=== PATIENT | male | born 1995 | race Caucasian/White ===

== ENCOUNTER 2018-09-05 18:08 | Emergency (ER) | payer MEDICAID ==
[2018-09-05 18:51] VITALS: BP 119/72
== END 2018-09-05 19:45 | disposition left against medical advice (07) ==
LOC: ER 18:08
DX: Z53.21 Procedure and treatment not carried out due to patient leaving prior to being seen by health care provider (principal)

== ENCOUNTER → 2018-09-23 | Outpatient (CLI) | payer MEDICAID ==
[2018-09-23 13:00] LABS: ABSOLUTE EOSINOPHILS # (AUTO) 0.1 10^3/uL (0.0-0.6); ABSOLUTE LYMPHOCYTES (AUTO) 1.8 10^3/uL (0.5-4.7); ABSOLUTE MONOCYTES (AUTO) 0.4 10^3/uL (0.1-1.4); ABSOLUTE NEUT (AUTO) 2.1 10^3/uL (1.7-8.2); BASOPHILS % (AUTO) 0.5 % (0-2); EOSINOPHILS % (AUTO) 1.3 % (0-6); HEMATOCRIT 36.2 % (37.9-51.0); HEMOGLOBIN 13.1 g/dL (13.5-17.0); LYMPHOCYTES % (AUTO) 41.8 % (13-45); MEAN CORPUSCULAR HEMOGLOBIN 31.1 pg (27.0-33.4); MEAN CORPUSCULAR HGB CONC 36.1 g/dL (32.0-36.0); MEAN CORPUSCULAR VOLUME 86 fl (80-97); MONOCYTES % (AUTO) 8.5 % (3-13); PLATELET COUNT 157 10^3/uL (150-450); RED BLOOD COUNT 4.21 10^6/uL (4.35-5.55); RED CELL DISTRIBUTION WIDTH 12.9 % (11.5-14.0); SEGMENTED NEUTROPHILS % (AUTO) 47.9 % (42-78); TOTAL CELLS COUNTED % (AUTO) 100 %; WHITE BLOOD COUNT 4.3 10^3/uL (4.0-10.5)
[2018-09-23 13:30] LABS: ALANINE AMINOTRANSFERASE 33 U/L (21-72); ALBUMIN 4.4 g/dL (3.5-5.0); ALKALINE PHOSPHATASE 66 U/L (38-126); ANION GAP 8 (5-19); ASPARTATE AMINO TRANSFERASE 25 U/L (17-59); BILIRUBIN,DIRECT 0.1 mg/dL (0.0-0.4); BILIRUBIN,TOTAL 0.4 mg/dL (0.2-1.3); BLOOD UREA NITROGEN 20 mg/dL (7-20); CALCIUM 9.6 mg/dL (8.4-10.2); CARBON DIOXIDE 31 mmol/L (22-30); CHLORIDE 100 mmol/L (98-107); GLUCOSE 71 mg/dL (75-110); POTASSIUM 4.6 mmol/L (3.6-5.0); SODIUM 139.3 mmol/L (137-145); TOTAL PROTEIN 7.1 g/dL (6.3-8.2)
[2018-09-24 07:23] LABS: HSV-I IGG AB <0.91 index (0.00-0.90)
[2018-09-24 11:40] LABS: HEPATITIS C VIRUS AB <0.1 s/co ratio (0.0-0.9); HEPATITS B SURFACE ANTIGEN Negative (Negative)
== END ==
LOC: OD 11:30
PROVIDERS: ATTEND Internal Medicine Geriatric Medicine
DX: Z20.2 Contact with and (suspected) exposure to infections with a predominantly sexual mode of transmission (principal); E55.9 Vitamin D deficiency, unspecified; R41.1 Anterograde amnesia
CPT/HCPCS: 36415; 80053; 80164; 82306; 83036; 85025; 86695; 86704; 86706; 86803; 86804; 87340

== ENCOUNTER → 2018-10-06 | Outpatient (CLI) | payer MEDICAID ==
[2018-10-06 11:33] LABS: CHOLESTEROL 147.93 mg/dL (0-200); TRIGLYCERIDES 48 mg/dL (<150)
[2018-10-06 11:50] LABS: DIRECT LDL 77 mg/dL (<100)
== END ==
LOC: OD 10:28
PROVIDERS: ATTEND Internal Medicine Geriatric Medicine
DX: Z20.2 Contact with and (suspected) exposure to infections with a predominantly sexual mode of transmission (principal); E55.9 Vitamin D deficiency, unspecified; F41.1 Generalized anxiety disorder
CPT/HCPCS: 36415; 80061

== ENCOUNTER → 2018-11-13 | Outpatient (CLI) | payer MEDICAID ==
--- NOTE | 2018-11-13 09:07 | RADIOLOGY REPORT (SQ) ---
EXAM DESCRIPTION: EMERSON SWALLOW COMPLETED DATE/TIME: 11/13/2018 8:40 am REASON FOR STUDY: SPEECH DISTURBANCES (R47.9), DYSARTHRIA AND ANARTHRIA (K47.1) R47.9 UNSPECIFIED S PEECH DISTURBANCES R47.1 DYSARTHRIA AND ANARTHRIA COMPARISON: None. TECHNIQUE: Videofluoroscopic swallowing examination was performed in conjunction with speech patholo gy. Videofluoroscopic imaging was obtained and reviewed and these are the findings: RADIATION DOSE: Fluoro time 2.21 minutes 2 images saved to PACS. LIMITATIONS: None FINDINGS: The patient was brought into the fluoro room and placed upright on a modified barium swall ow chair. The patient was then given multiple consistencies mixed with barium to swallow under live fluoroscopic video guidance. According to the Speech Pathologist there was aspiration seen with thin barium. Laryngeal penetration seen with nectar thick consistency. Please refer to the speech pathol ogy report for further details. IMPRESSION: TRACHEAL ASPIRATION SEEN WITH THIN BARIUM. PLEASE SEE SPEECH PATHOLOGIST REPORT FOR OTHE R FINDINGS AND RECOMMENDATIONS. COMMENT: NONE Quality ID [id number]: Final reports for procedures using fluoroscopy that document radiation exposure leonidas fransico, or exposure time and number of fluorographic images (if radiation exposure indices are not avail able) TECHNICAL DOCUMENTATION: JOB ID: [id number] [employer]- All Rights Reserved Reading location - IP/workstation name: [email or web address]
--- NOTE | 2018-11-13 09:31 | ST Modified Barium Swallow ---
Recommendation - Recommendations Recommendations: Recommend use of chin tuck with liquids, and consideration of nectar liquids to reduce risk of aspiration. Patient may benefit from dysphagia treatment for patient and family education and training on nature of condition, dysphagia exercises, and strategies. Medical Diagnoses - Medical Diagnoses Medical Diagnosis Description & ICD-10 Code(s): R13.10 dysphagia Other Medical Diagnoses/Co-Morbidities: per caregiver report: ADHD, bipolar, Autism, seizures, breathing problems, reflux - ICD-10 Tx Diagnosis Coding (2) Dysarthria and anarthria ICD-10 Code(s): R47.1 - DYSARTHRIA AND ANARTHRIA ST Modified Barium Swallow - General Date: 11/13/18 Referring Physician: Dr. Wick Date of Onset: 11/01/15 - approximate onset date Reason for Referral: difficulty swallowing - History History obtained from: Parent/Caregiver -: Medical - History obtained from speech evaluation on 09/30/18, gericare aide teacher reports no changes since that time: Pt is a 23 year old male accompanied to evaluation by mother/medical POA. Pt referred by Dr. Wick. Mother acted as primary historian during evaluation. Mother reported that since patient got out of residential facility at 20 has been having difficulty with speech, swallowing. Per mother, Dr. Wick indicated pt has a mild tongue tie. Mother reported that Fredi had speech therapy in elementary school but not middle or high school because "back then they didn't offer it"l. Mother reported severe weight loss (about 90 pounds) in the last 14 months with no medication changes. Mother reported that pt has been having swallowing problems since he was 20 and left residential facility. At that time, pt had wisdom teeth removed. Medications: list provided by gericare aide teacher: chlorpromazine, divalproexer, hydroxyzine, venlafaxino, benztropine, olanzapine, trazodone, clonazepam, vitamin D, iron Allergies: none reported - Functional Status Prior Functional Status: INDEPENDENT: feeding Current Functional Limitations: feeding - Subjective Patient/caregiver goal(s): safe swallow Cognitive-Linguistic Function: Functional Speech Intelligibility: Moderately dysarthric Current Nutritional Means: PO Current PO diet: Regular - is supplimenting diet with ensure Current symptoms: Weight loss, Coughing, c/o Globus sensation Pain: Patient reports, 0/5 - Objective Assessment: Upright, Left Lateral - Food Trials Used Food trials used: Thin liquids, [place] thick liquids, Pureed, Regular The patient: Was Able to Self Feed - Oral-Motor Skills Dentition: Full Velo-pharyngeal function: Unremarkable Laryngeal Function: clear voicing - Assessment Oral prep: Normal Labial closure: Adequate Leakage: None Mastication: Adequate Lingual Movement: Normal Oral stage: Normal for this Procedure - Pharyngeal Stage Initiation of Pharyngeal Stage Reflex: Normal Decreased laryngeal elevation: Yes Reduced Velopharyngeal Closure: no Reduced pressure generation: Yes reduced tongue-based retraction: No Pre-swallow pooling in valleculae: Mild Pre-Swallow pooling in pyriforms: Mild Reduced epiglottic excursion: No Reduced pharyngeal peristalsis/contraction: Yes Multiple Swallows with: Cleared w/ Liquid Assist Post-swallow residulas vallecular: Moderate Post-Swallow residuals in pyriforms: Mild Reduced Cricopharyngeal opening: No - Fall Risk Assessment Medications/Conditions that increase fall risks include: Antidepressants, sedatives, anti-arrhythmic, diuretic, benzodiazipenes, neuroleptics. BP regulation problems, cardiac problems, balance or gait deficits, neurological problems. Fall Risk Actions Taken: No action needed - Behavioral Observations During evaluation process patient: was pleasant, was cooperative, able to answer questions - Treatment / Educational Needs: Treatment/Education Needs: Treatment consisted of patient education on the role of the Speech Pathologist. Patient's plan of care and golas were communicated as well as scheduling and attendance policies. Recommendations for initial home program were shared. Patient demonstrated understanding and verbalized agreement. - Impression/Summary Laryngeal Penetration: Yes - with thin and nectar liquids, Delayed cough, during swallow Tracheal Aspiration: yes - with thin liquids only, deep, silent, during swallow Productive cough: No Effective Clearing: no Effective compensatory strategies: chin tuck Ineffective compensatory strategies: hard swallow Patient presents with: Pharyngeal stage dysph., Mild-Moderate Risk of Aspiration: Moderate Risk of nutritional compromise: Moderate Evaluation and Findings: Patient demonstrated reduced pharyngeal constriction and reduced laryngeal elevation/airway protection. This resulted in significant residue in valleculae, and mild residue in pyriform sinus. Patient frequently ducked head down to swallow liquids. When cued to keep head upright, jv aspiration of thin liquid seen without a cough reflex. With chin tuck, no aspiration seen, but penetration was present. Penetration also seen with nectar thick liquid trial with head upright. - Recommendations Liquid Diet Modification: [place]-Thick - discussed nectar thick liquids with gericare aide teacher due to risk of aspiration, hand out given, Thin - with chin tuck Strict aspiration precautions: Yes Pt/Family education and followup with MD: Yes Dysphagia therapy with RESIDENT SERVICE COORDINATOR: dysphagia therapy Recommended techniques: Fully Upright During Meal, Small Bites and Sips, Chin Tuck to Swallow Supervision: requires assistance Information, Precautions and Recommendations: Patient (Written), Patient (Verbal), Family Member (Written), Family Member (Verbal) - Time Total Time: 30 - Plan of Care Summary: Dysphagia treatment is indicated. Plan of care to be determined by treating therapist. Strategies to optimize patient understanding include:: ongoing assessment of educational needs, implementation of educational strategies, and re-education. - - -: Thank you for the opportunity to work with this patient and his/her family. Should you have any questions about this patient's plan or progress, I can be reached at [phone].
== END ==
LOC: RAD 07:47
PROVIDERS: ATTEND Otolaryngology
DX: R47.9 Unspecified speech disturbances (principal); R47.1 Dysarthria and anarthria
CPT/HCPCS: 74230

== ENCOUNTER → 2020-09-22 | Outpatient (CLI) | payer OTHER, MEDICAID ==
--- OUTSIDE RECORDS SUMMARY | 2020-09-22 07:57 | XMS REPORT ---
:1995 Author Organization [facility] Address [facility] [address] [place] [id number] Care Team Providers Name Role Phone RICK CORTES Attending Clinician Unavailable ALE Attending Clinician Unavailable Allergies, Adverse Reactions, Alerts This patient has no known allergies or adverse reactions. Medications Ordered Filled Start Stop Current Ordering Indication Dosage Frequency Signature Comments Components Medication Medication Date Date Medication? Clinician (SIG) Name Name olanzapine 2019-0 No 1 BID olanzapine 10 mg 1-17 10 mg tablet Take 00:00: tablet 1 tablet 00 Take 1 twice a day tablet by oral twice a route. day by oral route. chlorpromaz No 2 BID chlorproma ine 100 mg zine 100 tablet TAKE mg tablet TWO TABLETS TAKE TWO BY MOUTH TABLETS BY TWICE DAILY MOUTH FOR 30 DAYS TWICE DAILY FOR 30 DAYS benztropine No 1 BID benztropin 1 mg tablet e 1 mg TAKE ONE tablet AND TAKE ONE ONE-HALF AND TABLETS BY ONE-HALF MOUTH TWICE TABLETS BY DAILY FOR MOUTH 30 DAYS TWICE DAILY FOR 30 DAYS Depakote ER No 1 TID Depakote 500 mg ER 500 mg tablet,exte tablet,ext nded ended release release Take 1 Take 1 tablet 3 tablet 3 times a day times a by oral day by route. oral route. Effexor XR No 1capsul Q1D Effexor XR 75 mg e(s) 75 mg capsule,ext capsule,ex ended tended release release Take 1 Take 1 capsule capsule every day every day by oral by oral route. route. Judith-Time No 1 Q2D Judith-Time 325 mg (65 325 mg (65 mg iron) mg iron) tablet Take tablet 1 tablet Take 1 every other tablet day by oral every route. other day by oral route. Klonopin No .5 BID Klonopin 0.5 mg 0.5 mg tablet Take tablet 0.5 tablets Take 0.5 twice a day tablets by oral twice a route as day by needed. oral route as needed. trazodone No 1 Q1D trazodone 150 mg 150 mg tablet TAKE tablet ONE TABLET TAKE ONE BY MOUTH TABLET BY EVERY NIGHT MOUTH AT BEDTIME EVERY NIGHT AT BEDTIME Vistaril 25 No 1capsul TID Vistaril mg capsule e(s) 25 mg Take 1 capsule capsule 3 Take 1 times a day capsule 3 by oral times a route. day by oral route. Vistaril 50 No 1capsul Q1D Vistaril mg capsule e(s) 50 mg Take 1 capsule capsule Take 1 every day capsule by oral every day route at by oral bedtime. route at bedtime. clonazepam No clonazepam 0.5 mg 0.5 mg tablet TAKE tablet ONE-HALF TAKE TABLET BY ONE-HALF MOUTH EVERY TABLET BY DAY FOR 30 MOUTH DAYS EVERY DAY FOR 30 DAYS divalproex No divalproex ER 500 mg ER 500 mg tablet,exte tablet,ext nded ended release 24 release 24 hr TAKE 3 hr TAKE 3 TABLETS BY TABLETS BY MOUTH EVERY MOUTH NIGHT AT EVERY BEDTIME FOR NIGHT AT 30 DAYS BEDTIME FOR 30 DAYS hydroxyzine No hydroxyzin pamoate 25 e pamoate mg capsule 25 mg Take 1 capsule capsule 3 Take 1 times a day capsule 3 by oral times a route. day by oral route. venlafaxine No venlafaxin ER 75 mg e ER 75 mg capsule,ext capsule,ex ended tended release 24 release 24 hr TAKE 1 hr TAKE 1 CAPSULE BY CAPSULE BY MOUTH EVERY MOUTH DAY WITH EVERY DAY FOOD FOR 30 WITH FOOD DAYS FOR 30 DAYS hydroxyzine No hydroxyzin pamoate 50 e pamoate mg capsule 50 mg TAKE 1 capsule CAPSULE BY TAKE 1 MOUTH EVERY CAPSULE BY 8 HOURS MOUTH NEEDED FOR EVERY 8 30 DAYS HOURS NEEDED FOR 30 DAYS olanzapine No 1 BID olanzapine 20 mg 20 mg tablet Take tablet 1 tablet Take 1 twice a day tablet by oral twice a route as day by directed. oral route as directed. DOK 100 mg No DOK 100 mg capsule capsule TAKE 2 TAKE 2 CAPSULES BY CAPSULES MOUTH EVERY BY MOUTH DAY FOR 30 EVERY DAY DAYS FOR 30 DAYS guanfacine No guanfacine ER 1 mg ER 1 mg tablet,exte tablet,ext nded ended release 24 release 24 hr TAKE 1-2 hr TAKE TABLETS BY 1-2 MOUTH ONCE TABLETS BY DAILY FOR MOUTH ONCE 30 DAYS DAILY FOR 30 DAYS olanzapine No olanzapine 15 mg 15 mg tablet TAKE tablet ONE TABLET TAKE ONE BY MOUTH TABLET BY TWICE DAILY MOUTH FOR 30 DAYS TWICE DAILY FOR 30 DAYS trazodone No trazodone 100 mg 100 mg tablet TAKE tablet TWO TABLETS TAKE TWO BY MOUTH TABLETS BY EVERY NIGHT MOUTH AT BEDTIME EVERY FOR 30 DAYS NIGHT AT BEDTIME FOR 30 DAYS guanfacine No 1mg guanfacine 1 mg tablet 1 mg 1 mg by tablet 1 oral route. mg by oral route. hydroxyzine No 50mg Q8H hydroxyzin HCl 50 mg e HCl 50 tablet 50 mg tablet mg every 8 50 mg hours by every 8 oral route. hours by oral route. venlafaxine No 75mg venlafaxin 75 mg e 75 mg tablet 75 tablet 75 mg by oral mg by oral route. route. Colace 100 No 2capsul Q1D Colace 100 mg capsule e(s) mg capsule Take 2 Take 2 capsules capsules every day every day by oral by oral route for route for 30 days. 30 days. ergocalcife No 1capsul ergocalcif rol e(s) tacos (vitamin (vitamin D2) 1,250 D2) 1,250 mcg (50,000 mcg unit) (50,000 capsule unit) Take 1 capsule capsule Take 1 every month capsule by oral every route for month by 90 days. oral route for 90 days. guanfacine No guanfacine ER 2 mg ER 2 mg tablet,exte tablet,ext nded ended release 24 release 24 hr TAKE ONE hr TAKE TABLET BY ONE TABLET MOUTH ONCE BY MOUTH DAILY ONCE DAILY docusate Yes 200mg QD Take 200 (COLACE) mg by 100 MG mouth once capsule daily chlorproMAZ Yes 200mg Q.5D Take 200 INE mg by (THORAZINE) mouth 2 100 MG (two) tablet times daily traZODone Yes 200mg QD Take 200 (DESYREL) mg by 100 MG mouth tablet nightly guanFACINE Yes 1mg QD Take 1 mg (TENEX) 1 by mouth MG tablet nightly OLANZapine Yes 15mg Q.5D Take 15 mg (ZYPREXA) by mouth 2 15 MG (two) tablet times daily hydrOXYzine Yes 50mg Q8H Take 50 mg (ATARAX) 50 by mouth MG tablet every 8 (eight) hours as needed for Itching divalproex Yes 1500mg QD Take 1,500 (DEPAKOTE mg by ER) 500 MG mouth ER tablet nightly clonazePAM Yes .5mg QD Take 0.5 (KLONOPIN) mg by 0.5 MG mouth once tablet daily venlafaxine Yes 75mg QD Take 75 mg (EFFEXOR) by mouth 75 MG once daily tablet benztropine Yes 1mg Q.5D Take 1 mg (COGENTIN) by mouth 2 1 MG tablet (two) times daily melatonin 5 Yes 10mg Take 10 mg mg Tab by mouth every other day ergocalcife Yes [id number] Take rol, 50,000 vitamin D2, Units by 1,250 mcg mouth once (50,000 a week unit) capsule multivitami Yes 2{tbl} QD Take 2 n Chew tablets by mouth once daily Herbal Yes Headache Supplement tension Problems Condition Condition Condition Status Onset Resolution Last Treatin g Comments Name Details Category Date Date Treatment Clinician Date Chronic Chronic Problem Active constipatio Constipatio 6-24 n n 00:00: 00 Visual Visual Problem Active disturbance Disturbance 2-28 00:00: 00 Generalized Generalized Problem Active anxiety Anxiety 1-17 disorder Disorder 00:00: 00 Autistic Autistic Problem Active disorder Disorder 6-05 00:00: 00 Vitamin D Vitamin D Problem Active deficiency Deficiency Hearing Hearing Problem Active loss Loss Abnormal Abnormal Problem Active weight loss Weight Loss Procedures Procedure Date / Time Performed Performing Clinician Yolanda aguero [id number] 00:00:00 Rick Cortes Ear Tube 1997-02-08 00:00:00 Results Test Description Test Time Test Comments Text Results Atomic Results Result Comments REQUEST FOR IMAGE LIBRARY 2020-05-14 07:31:46 Please r efer to the appropriate SERVICES PACS to view images. MRI head reference only 2020-05-14 07:31:11 This order has been auto-finalized. Please see additional clinical documentation for result rep ort. Lipid 1996 panel - Serum or Plasma 2018-10-06 00:00:00 Test Item Value Reference Range Comments triglycerides (test code = triglycerides) 48 mg/dL <150 cholesterol (test code = cholesterol) 147.93 mg/dL 0-200 direct LDL (test code = direct LDL) 77 mg/dL <100 VLDL cholesterol (test code = VLDL cholesterol) 10.0 mg/dL 10-31 direct HDL (test code = direct HDL) 59 mg/dL >40 visual [id number] 09:56:37 Test Item Value Reference Range Comments R Eye Uncorrected (test code = R Eye Uncorrected) 20/200 L Eye Uncorrected (test code = L Eye Uncorrected) 20/200 R Eye Corrected (test code = R Eye Corrected) 20/50 L Eye Corrected (test code = L Eye Corrected) 20/40 CBC WITH DIFFERENTIAL/PLATELET Test Item Value Reference Range Comments WBC (test code = 6690-2) 6.3 X10E3/UL 3.4-10.8 RBC (test code = 789-8) 4.28 X10E6/UL 4.14-5.80 HEMOGLOBIN (test code = 718-7) 13.1 G/DL 13.0-17.7 HEMATOCRIT (test code = 4544-3) 36.9 % 37.5-51.0 MCV (test code = 787-2) 86 FL 79-97 MCH (test code = 785-6) 30.6 PG 26.6-33.0 MCHC (test code = 786-4) 35.5 G/DL 31.5-35.7 RDW (test code = 788-0) 11.5 % 11.6-15.4 PLATELETS (test code = 777-3) 199 X10E3/UL 150-450 NEUTROPHILS (test code = 770-8) 62 % LYMPHS (test code = 736-9) 26 % MONOCYTES (test code = 5905-5) 9 % EOS (test code = 713-8) 1 % BASOS (test code = 706-2) 1 % NEUTROPHILS (ABSOLUTE) (test code = 751-8) 4 X10E3/UL 1.4-7 .0 LYMPHS (ABSOLUTE) (test code = 731-0) 1.7 X10E3/UL 0.7-3.1 MONOCYTES(ABSOLUTE) (test code = 742-7) .5 X10E3/UL 0.1-0.9 EOS (ABSOLUTE) (test code = 711-2) .1 X10E3/UL 0.0-0.4 BASO (ABSOLUTE) (test code = 704-7) 0 X10E3/UL 0.0-0.2 IMMATURE GRANULOCYTES (test code = 57767-8) 1 % IMMATURE GRANS (ABS) (test code = 68908-9) 0 X10E3/UL 0.0-0 .1 COMP. METABOLIC PANEL (14) Test Item Value Reference Range Comments GLUCOSE (test code = 2345-7) 87 MG/DL 65-99 BUN (test code = 3094-0) 16 MG/DL 6-20 CREATININE (test code = 2160-0) 1.07 MG/DL 0.76-1.27 EGFR IF NONAFRICN AM (test code = 41546-7) 97 ML/MIN/1.73 >59 EGFR IF AFRICN AM (test code = 54774-0) 113 ML/MIN/1.73 >59 BUN/CREATININE RATIO (test code = 3097-3) 15 9-20 SODIUM (test code = 2951-2) 140 MMOL/L 134-144 POTASSIUM (test code = 2823-3) 4.5 MMOL/L 3.5-5.2 CHLORIDE (test code = 2075-0) 101 MMOL/L 96-106 CARBON DIOXIDE, TOTAL (test code = 2027-9) 24 MMOL/L 20-29 CALCIUM (test code = 02662-8) 9.7 MG/DL 8.7-10.2 PROTEIN, TOTAL (test code = 2885-2) 7.2 G/DL 6.0-8.5 ALBUMIN (test code = 1751-7) 4.5 G/DL 4.1-5.2 GLOBULIN, TOTAL (test code = 90698-1) 2.7 G/DL 1.5-4.5 A/G RATIO (test code = 1759-0) 1.7 1.2-2.2 BILIRUBIN, TOTAL (test code = 1974-2) .3 MG/DL 0.0-1.2 ALKALINE PHOSPHATASE (test code = 6768-6) 77 IU/L 39-117 AST (SGOT) (test code = 1920-8) 19 IU/L 0-40 ALT (SGPT) (test code = 1742-6) 17 IU/L 0-44 LP+CHOL/HDL+CHD RISK Test Item Value Reference Range Comments CHOLESTEROL, TOTAL (test code = 3-3) 136 MG/DL 100-199 TRIGLYCERIDES (test code = 2571-8) 95 MG/DL 0-149 HDL CHOLESTEROL (test code = 5-9) 45 MG/DL >39 VLDL CHOLESTEROL ANDREA (test code = 48074-8) 18 MG/DL 5-40 LDL CHOL CALC ([facility]) (test code = 81410-0) 73 MG/DL 0-99 T. CHOL/HDL RATIO (test code = 9830-1) 3 RATIO 0.0-5.0 ESTIMATED CHD RISK (test code = 72654-7) < 0.5 TIMES AVG. 0.0-1. 0 VITAMIN D, 25-HYDROXY Test Item Value Reference Range Comments VITAMIN D, 25-HYDROXY (test code = 76920-5) 56.8 NG/ML 30.0 -100.0 Assessments Condition Name Status Diagnosis Date Treating Clinici an Abnormal weight loss Active 2020-08-17 16:12:15 Vitamin D deficiency Active 2020-08-17 16:12:16 Visual disturbance Active 2020-08-17 17:07:21 Adult health examination Active 2020-05-12 15:31:02 Immunization Active 2020-05-12 15:31:02 Disturbance in speech Active 2020-05-12 16:16:22 Dysphagia Active 2020-05-12 16:17:55 Vitamin D deficiency Active 2020-05-12 16:30:58 Abnormal weight loss Active 2020-05-12 16:40:30 Vitamin D deficiency Active 2020-02-24 14:08:58 Abnormal weight loss Active 2020-02-24 14:08:59 Chronic constipation Active 2020-02-24 14:41:24 Autistic disorder Active 2019-11-19 15:34:31 Generalized anxiety disorder Active 2019-11-19 15:34:37 Vitamin D deficiency Active 2019-02-18 16:27:33 Abnormal weight loss Active 2019-02-18 16:27:41 Visual disturbance Active 2019-02-18 17:40:19 Abnormal weight loss Active 2018-10-30 10:36:53 Abnormal weight loss Active 2018-09-18 09:40:40 Abnormal vision Active 2018-09-18 09:56:03 At risk of sexually transmitted Active 2018-09-18 10:46 :43 infection Vitamin D deficiency Active 2018-09-18 10:56:06 Generalized anxiety disorder Active 2018-09-18 10:57:34 Influenza vaccination Active 2018-09-18 11:06:34 Spells of decreased attentiveness Unknown Seizure-like activity (CMS-HCC) Unknown Near syncope Unknown Visual disturbances Unknown Gait difficulty Unknown Need for immunization against Unknown influenza Encounters Start End Encounter Admission Attending Care Care Encounter Date/Time Date/Time Type Type Clinicians Facility Department ID 2020-08-17 2020-08-17 [facility] 00:00:00 00:00:00 [facility] [address] Eduar Wise MD: [address] [place] [address], Ph. 2020-06-17 2020-06-17 Outpatient [facility] [id number] 00:00:00 00:00:00 2020-05-17 2020-05-17 Outpatient [facility] [id number] 00:00:00 00:00:00 2020-05-15 2020-05-15 Outpatient [facility] [id number] 00:00:00 00:00:00 2020-05-13 2020-05-13 Outpatient STRINE, [facility] [id number] 16:06:17 23:59:00 RICK 2020-05-13 2020-05-13 Outpatient ABBASSI, [facility] [id number] 14:28:52 16:11:55 DAPHNE 2020-05-12 2020-05-12 [facility] _2019 00:00:00 00:00:00 ALEXANDER Avitia: Matilda Grey [address] [place] [address], Ph. 2020-02-24 2020-02-24 [facility] 29_2019 00:00:00 00:00:00 [facility] [address] Eduar Wise MD: [address] [place] [address], Ph. 2019-11-19 2019-11-19 [facility] 29 00:00:00 00:00:00 [facility] [address]19 Eduar Wise MD: [address] [place] [address], Ph. 2019-02-18 2019-02-18 [facility] 29_2018 00:00:00 00:00:00 [facility] [address] Eduar Wise MD: [address] [place] [address], Ph. 2018-10-30 2018-10-30 [facility] _2018 00:00:00 00:00:00 [facility] [address] [facility] MD: [address] [place] [address], Ph. 2018-09-18 2018-09-18 [facility] _2018 00:00:00 00:00:00 [facility] [address] [facility] MD: [address] [place] [address], Ph. 2017-09-11 2017-09-11 Outpatient SEBASTIAN [facility] [id number] 00:00:00 00:00:00 RICK Immunizations Ordered Filled Immunization Date Status Comments Refus al Reason Immunization Name Name influenza, 2020-05-13 Completed injectable, 00:00:00 quadrivalent, preservative free Influenza IIV4, IM 2020-05-13 Completed Pres-free 6MO+ 00:00:00 influenza, 2018-10-06 Completed injectable, 00:00:00 quadrivalent influenza, Unknown Completed injectable, quadrivalent, preservative free - 0.5 mL syringe(s) Plan of Treatment Planned Activity Planned Date Details Comments Future Scheduled Test [code = ] Future Scheduled Test [code = ] Future Scheduled Test [code = ] Future Scheduled Test [code = ] Future Scheduled Test [code = ] Future Scheduled Test [code = ] Future Scheduled Test [code = ] Future Scheduled Test [code = ] Future Appointment 2020-11-14 00:00:00 Rafa Carlahayde, [address] [place] [address]; [place] [address] Future Appointment 2020-11-04 15:30:00 Daphne Almendarez DO, [address] [place] [address], [place] [address] Social History Social Habit Start Date Stop Date Comments Exposure to SARS-CoV-2 (event) Smoking Status Start Date Stop Date Current Some Day Smoker Never Smoker Vital Signs Vital Name Observation Time Observation Value Comments BP Diastolic 2020-08-17 00:00:00 76 mm[Hg] Height 2020-08-17 00:00:00 71.75 [in_i] BMI (Body Mass Index) 2020-08-17 00:00:00 23.1 kg/m2 BP Systolic 2020-08-17 00:00:00 110 mm[Hg] Body Weight 2020-08-17 00:00:00 169 [lb_av] Systolic blood pressure 2020-05-13 14:37:00 118 mm[Hg] Diastolic blood pressure 2020-05-13 14:37:00 74 mm[Hg] Heart rate 2020-05-13 14:37:00 112 /min Body temperature 2020-05-13 14:37:00 36.44 Myranda Respiratory rate 2020-05-13 14:37:00 15 /min Body height 2020-05-13 14:37:00 182.9 cm Body weight 2020-05-13 14:37:00 68.493 kg BMI 2020-05-13 14:37:00 20.48 kg/m2 BP Diastolic 2020-05-12 00:00:00 66 mm[Hg] Height 2020-05-12 00:00:00 71.75 [in_i] BMI (Body Mass Index) 2020-05-12 00:00:00 20.6 kg/m2 BP Systolic 2020-05-12 00:00:00 103 mm[Hg] Body Weight 2020-05-12 00:00:00 151.2 [lb_av] BP Diastolic 2020-02-24 00:00:00 72 mm[Hg] Height 2020-02-24 00:00:00 71.75 [in_i] BMI (Body Mass Index) 2020-02-24 00:00:00 21.4 kg/m2 BP Systolic 2020-02-24 00:00:00 104 mm[Hg] Body Weight 2020-02-24 00:00:00 156.6 [lb_av] BP Diastolic 2019-11-19 00:00:00 68 mm[Hg] Height 2019-11-19 00:00:00 71.75 [in_i] BMI (Body Mass Index) 2019-11-19 00:00:00 22.7 kg/m2 BP Systolic 2019-11-19 00:00:00 102 mm[Hg] Body Weight 2019-11-19 00:00:00 166 [lb_av] BP Diastolic 2019-02-18 00:00:00 75 mm[Hg] Height 2019-02-18 00:00:00 71.75 [in_i] BMI (Body Mass Index) 2019-02-18 00:00:00 18.9 kg/m2 BP Systolic 2019-02-18 00:00:00 112 mm[Hg] Body Weight 2019-02-18 00:00:00 138.2 [lb_av] BP Diastolic 2018-10-30 00:00:00 66 mm[Hg] Height 2018-10-30 00:00:00 71.75 [in_i] BMI (Body Mass Index) 2018-10-30 00:00:00 18.8 kg/m2 BP Systolic 2018-10-30 00:00:00 96 mm[Hg] Body Weight 2018-10-30 00:00:00 138 [lb_av] BP Diastolic 2018-09-18 00:00:00 63 mm[Hg] Height 2018-09-18 00:00:00 71.75 [in_i] BMI (Body Mass Index) 2018-09-18 00:00:00 18.1 kg/m2 BP Systolic 2018-09-18 00:00:00 97 mm[Hg] Body Weight 2018-09-18 00:00:00 132.4 [lb_av] Hospital Discharge Instructions 1. Abnormal weight loss abnormal weight loss: care instructions 2. Vitamin D deficiency ergocalciferol (vitamin D2) 1,250 mcg (50,000 unit) capsule learning about vitamin D 3. Visual disturbance ophthalmology referral reduced vision: care instructions Discussion Note Patient verbalized understanding and agreement with recommended care plan. All questions and concerns were addressed and answered adequately. Follow up visit will address constipation, vit D def, weight mgt1. Adult health examination lipid panel, serum CBC w/ auto diff CMP, serum or plasma well visit, ages 18 to 50: care instructions A healthy lifestyle: care instructions 2. Immunization influenza (flu) vaccine (inactivated or recombinant): what you need to know influenza (flu) vaccine: care instructions 3. Disturbance in speech speech therapy referral 4. Dysphagia feeding and swallow therapy 5. Vitamin D deficiency vitamin D, 25-hydroxy, total, serum 6. Abnormal weight loss Ensure oral liquid abnormal weight loss: care instructions Discussion Note Patient verbalized understanding and agreement with recommended care plan. All questions and concerns were addressed and answered adequately. Follow up visit will address abn wt loss, gad1. Vitamin D deficiency vitamin D, 25-hydroxy, total, serum learning about vitamin D 2. Abnormal weight loss abnormal weight loss: care instructions 3. Chronic constipation Colace 100 mg capsule constipation: care instructions high-fiber diet: care instructions Discussion Note Patient verbalized understanding and agreement with recommended care plan. All questions and concernswere addressed and answered adequately. Follow up visit will address ape.1. Autistic disorder autism spectrum disorder (ASD) in children: care instructions 2. Generalized anxiety disorder anxiety disorder: care instructions Discussion Note Patient verbalized understanding and agreement with recommended care plan. All questions and concerns were addressed and answered adequately. Follow up visit will address vit D def, abn. weight loss1. Vitamin D deficiency learning about vitamin D 2. Abnormal weight loss abnormal weight loss: care instructions Ensure oral liquid 3. Visual disturbance ophthalmology referral reduced vision: care instructions Discussion Note Patient verbalized understanding and agreement with recommended care plan. All questions and concerns were addressed and answered adequately. Follow up visit will address ape1. Abnormal weight loss abnormal weight loss: care instructions Discussion Note Patient verbalized understanding and agreement with recommended care plan. All questions and concerns were addressed and answered adequately. Follow up visit will address vit d, weight loss1. Abnormal weight loss abnormal weight loss: care instructions 2. Abnormal vision reduced vision: care instructions ophthalmology referral visual acuity 3. At risk of sexually transmitted infection hsv (1+2) igg Ab, serum HIV 1+2 Ab + HIV1 p24 Ag, quantitative immunoassay, serum hepatitis C Ab, serum chlamydia, RNA, urine HBsAg (hepatitis B surface Ag), EIA, serum hepatitis B virus core Ab, qualitative, serum 4. Vitamin D deficiency vitamin D, 25-hydroxy,total, serum 5. Generalized anxiety disorder anxiety disorder: care instructions CBC w/ autodiff CMP, serum or plasma lipid panel, blood valproic acid, total, serum HbA1c (hemoglobin A1c), blood 6. Influenza vaccination influenza (flu) vaccine: care instructions Afluria Quad [id number] (PF) 60 mcg (15 mcg x 4)/0.5 mL IM syringe Discussion Note Patient verbalized underst anding and agreement with recommended care plan. All questions and concerns were addressed and answered adequately. Follow up visit will address wgt loss
--- NOTE | 2020-09-22 10:51 | RADIOLOGY REPORT (SQ) ---
EXAM DESCRIPTION: COOKIE SWALLOW IMAGES COMPLETED DATE/TIME: 09/22/2020 8:49 am REASON FOR STUDY: DYSPAGHIA R13.10 DYSPHAGIA, UNSPECIFIED R13.13 DYSPHAGIA, PHARYNGEAL PHASE R13.1 2 DYSPHAGIA, OROPHARYNGEAL PHASE autism with learning disabilities. Aspiration on previous modified barium swallow, follow-up new COMPARISON: Modified barium swallow 11/13/2018 TECHNIQUE: Videofluoroscopic swallowing examination was performed in conjunction with speech patholo gy. Videofluoroscopic imaging was obtained and reviewed and these are the findings: RADIATION DOSE: 3 minutes 1 second of fluoroscopy was used. 2 images saved to PACS. LIMITATIONS: None FINDINGS: The patient was brought into the fluoro room and placed upright on a modified barium swall ow chair. The patient was then given multiple consistencies mixed with barium to swallow under live fluoroscopic video guidance. According to the Speech Pathologist there was no penetration or aspirat ion. Post swallow residual contrast within the vallecula. IMPRESSION: NO EVIDENCE OF PENETRATION OR ASPIRATION. PLEASE SEE SPEECH PATHOLOGIST REPORT FOR OTHER FINDINGS AND RECOMMENDATIONS. COMMENT: Quality ID [id number]: Final reports for procedures using fluoroscopy that document radiation exp osure indices, or exposure time and number of fluorographic images (if radiation exposure indices are not available) TECHNICAL DOCUMENTATION: JOB ID: [id number] 2010 [employer]- All Rights Reserved Reading location - IP/workstation name: [email or web address] [id number]
--- NOTE | 2020-09-22 15:11 | ST Modified Barium Swallow ---
Recommendation - Recommendations Recommendations: Recommend thin liquids and soft solids. Patient demonstrated improved swallow function from prior MBSS. Recommend patient continue with his previously given dysphagia exercises to ensure continued safe swallow. Medical Diagnoses - Medical Diagnoses Medical Diagnosis Description & ICD-10 Code(s): R13.10 dysphagia, R13.13 Other Medical Diagnoses/Co-Morbidities: per caregiver report: ADHD, bipolar, Autism, seizures, breathing problems, reflux ST Modified Barium Swallow - General Date: 09/22/20 Referring Physician: Dr. Wise Risks/Precautions: Aspiration Reason for Referral: follow up study to monitor progress with therapy - History -: Medical - History of weight loss, coughing with thin liquids, history of aspiration per last Modified Barium Swallow Study., ST - Patient has been attending outpatient speech therapy since May 2020 to address pharyngeal phase deficits seen on previous study. Medications: benztropine, chlorpromazine, chlonazepam, divalproex, DOK, Ensure, ergocalciferol (Vit D2), guanfacine ER1, guafacine ER 2, hydroxyzine pamoate, olanzapine, trazodone, venlafaxine Allergies: none reported - Functional Status Prior Functional Status: INDEPENDENT: feeding Current Functional Limitations: feeding - hx of aspiration with thin liquids - Subjective Patient/caregiver goal(s): safe swallow Cognitive-Linguistic Function: Functional, Mildly Impaired Speech Intelligibility: Mildly dysarthric Current Nutritional Means: PO Current PO diet: Regular Current symptoms: Weight loss, Aspiration Pain: Patient reports, 0/5 - Objective Assessment: Upright, Left Lateral - Food Trials Used Food trials used: Thin liquids, Pureed, Regular The patient: Was Able to Self Feed - Oral-Motor Skills Dentition: Full Velo-pharyngeal function: Unremarkable Laryngeal Function: clear voicing - Assessment Oral prep: Normal Labial closure: Adequate Leakage: None Mastication: Adequate Lingual Movement: Normal Oral Stage: Mildly reduced base of tongue retraction - Pharyngeal Stage Initiation of Pharyngeal Stage Reflex: Normal Decreased laryngeal elevation: No Reduced Velopharyngeal Closure: no Reduced pressure generation: Yes - mild reduced tongue-based retraction: Yes - mild Pre-swallow pooling in valleculae: Moderate Pre-Swallow pooling in pyriforms: None Reduced Thyro-Hyoid approximation: No Reduced epiglottic excursion: Yes - mild to moderate Multiple Swallows with: Effective Post-swallow residulas vallecular: Moderate - for solids Post-Swallow residuals in pyriforms: Mild - for regular solids - Fall Risk Assessment Medications/Conditions that increase fall risks include: Antidepressants, sedatives, anti-arrhythmic, diuretic, benzodiazipenes, neuroleptics. BP regulation problems, cardiac problems, balance or gait deficits, neurological problems. Is patient considered at risk for falls: no Fall Risk Actions Taken: No action needed - Behavioral Observations During evaluation process patient: was cooperative - Treatment / Educational Needs: Treatment/Education Needs: Treatment consisted of patient education on the role of the Speech Pathologist. Patient's plan of care and golas were communicated as well as scheduling and attendance policies. Recommendations for initial home program were shared. Patient demonstrated understanding and verbalized agreement. - Impression/Summary Laryngeal Penetration: No Tracheal Aspiration: no Patient presents with: Pharyngeal stage dysph. - mild Risk of Aspiration: Minimal Risk of nutritional compromise: WNL Evaluation and Findings: Patient demonstrates very improved swallow function from last study completed on 11/13/18. At that time, penetration of thin and nectar liquids were seen, as well as aspiration of thin liquids (silent) due to poor laryngeal elevation, poor pharyngeal contraction, and reduced pressure generation. At today's study, no penetration or aspiration of liquids was seen. Patient does continue to demonstrate some mild to moderate residue in the valleculae of solids, especially regular solids, however, this cleared with liquid wash. - Recommendations Solid diet recommendations: Mechanical Soft Liquid Diet Modification: Thin Pt/Family education and followup with MD: Yes Dysphagia therapy with AEROBICS INSTRUCTOR: f/u with current thera. Recommended techniques: Fully Upright During Meal, Small Bites and Sips, Alternate Bites/Sips Information, Precautions and Recommendations: Patient (Verbal), Family Member (Verbal) - Time Total Time: 30 - Plan of Care Strategies to optimize patient understanding include:: ongoing assessment of educational needs, implementation of educational strategies, and re-education. - - -: Thank you for the opportunity to work with this patient and his/her family. Should you have any questions about this patient's plan or progress, I can be reached at [phone].
== END ==
LOC: RAD 07:55
PROVIDERS: ATTEND Internal Medicine Geriatric Medicine
DX: R13.10 Dysphagia, unspecified (principal); R13.13 Dysphagia, pharyngeal phase; R13.12 Dysphagia, oropharyngeal phase
CPT/HCPCS: 74230